=== PATIENT | male | born 1945 | race Caucasian/White ===

== ENCOUNTER → 2021-01-20 | Outpatient (CLI) | payer OTHER ==
[~2021-01-20] MED LIST: CENTRUM SILVER1 EAC1 PO; LEVOTHYROXINE50 MCG PO; LISINOPRIL10 MG PO; PRAVASTATIN SOD40 MG PO; TAGAMET HB200 MG PO; TYLENOL 8 HOUR650 MG PO; XANAX 0.25 MG0.25 MG PO
[2021-01-20 11:52] LABS: HEMOGLOBIN 15.2 gm/dl (14.0-17.5); RED BLOOD COUNT 4.87 M/UL (4.20-5.50); WHITE BLOOD COUNT 6.5 K/UL (4.5-11.0)
[2021-01-20 12:20] LABS: BUN/CREATININE RATIO 15 (0-10)
== END ==
LOC: EDSTATUS 10:30 → OPSV2 10:30
PROVIDERS: Orthopaedic Surgery
DX: Z01.818 Encounter for other preprocedural examination (principal); M17.12 Unilateral primary osteoarthritis, left knee
CPT/HCPCS: 36415; 71046; 80048; 85025; 87081; 93005

== ENCOUNTER → 2021-04-06 | Outpatient (CLI) | payer OTHER ==
[~2021-04-06] MED LIST changes: +EQUATE EYE EYEBOTH
[2021-04-06 13:31] LABS: BUN/CREATININE RATIO 9 (0-10)
[2021-04-06 13:43] LABS: HEMOGLOBIN 14.6 gm/dl (14.0-17.5); RED BLOOD COUNT 4.95 M/UL (4.20-5.50); WHITE BLOOD COUNT 5.4 K/UL (4.5-11.0)
== END ==
LOC: OPSV2 11:44 → EDSTATUS 12:00 → OPSV2 12:00
PROVIDERS: Orthopaedic Surgery
DX: Z01.818 Encounter for other preprocedural examination (principal); M17.12 Unilateral primary osteoarthritis, left knee; R91.8 Other nonspecific abnormal finding of lung field
CPT/HCPCS: 71046; 80048; 81001; 85025; 87086; 93005

== ENCOUNTER → 2021-04-18 | Outpatient (CLI) | payer OTHER ==
[~2021-04-18] MED LIST changes: +ELIQUIS 2.5 MG2.5 MG GT; +HYDROCODON-ACE1 EAC6 PO
[2021-04-18 15:04] LABS: BUN/CREATININE RATIO 13 (0-10)
== END ==
LOC: LAB 13:19
PROVIDERS: Orthopaedic Surgery
DX: Z01.812 Encounter for preprocedural laboratory examination (principal); M17.12 Unilateral primary osteoarthritis, left knee; I10 Essential (primary) hypertension
CPT/HCPCS: 36415; 80048; 86850; 86900; 86901

== ENCOUNTER 2021-04-19 09:12 | Day surgery (SDC) | payer OTHER ==
[~2021-04-19] VITALS: Ht 167.6 cm; Wt 120.2 kg
[~2021-04-19 09:12] MED LIST changes: -ELIQUIS 2.5 MG2.5 MG GT; -HYDROCODON-ACE1 EAC6 PO
[2021-04-19] MEDS ORDERED: HYDROCODON-ACE1 EAC6 PO (13:39)
[2021-04-20 04:04] LABS: HEMOGLOBIN 13.1 gm/dl (14.0-17.5); RED BLOOD COUNT 4.21 M/UL (4.20-5.50); WHITE BLOOD COUNT 10.2 K/UL (4.5-11.0)
[2021-04-20 04:31] LABS: BUN/CREATININE RATIO 14 (0-10)
--- NOTE | 2021-04-20 06:20 | NUR ---
BLADDER SCANNED TWICE THIS SHIFT, THE FIRST TIME SHOWING ONLY 21 MLS AND THE SECOND ONE SHOWING 69 MLS. PATIENT HAD OVER 400 MLS OUT THIS SHIFT.
[2021-04-20] MEDS ORDERED: ELIQUIS 2.5 MG2.5 MG GT (06:51)
== END 2021-04-20 15:32 | disposition home health service (06) ==
LOC: OR 09:12 → M/S 17:41 → OR 04-20 15:32
PROVIDERS: Orthopaedic Surgery; Physician Assistant
DX: M17.12 Unilateral primary osteoarthritis, left knee (principal); I10 Essential (primary) hypertension; E78.5 Hyperlipidemia, unspecified; Z88.6 Allergy status to analgesic agent; Z88.5 Allergy status to narcotic agent; Z88.0 Allergy status to penicillin; Z88.8 Allergy status to other drugs, medicaments and biological substances; K21.9 Gastro-esophageal reflux disease without esophagitis; E03.9 Hypothyroidism, unspecified; R00.1 Bradycardia, unspecified; E66.01 Morbid (severe) obesity due to excess calories; K44.9 Diaphragmatic hernia without obstruction or gangrene; Z20.822 Contact with and (suspected) exposure to COVID-19; Z68.41 Body mass index [BMI] 40.0-44.9, adult
CPT/HCPCS: 36415; 73560; 76000; 80048; 84439; 84443; 85025; 93005; 97116-GP-CQ; 97161; 97166; 97530-GP-CQ; 97535; C1776; J0171; J0690; J1100; J1170; J1200; J1885; J2001; J2250; J2405; J2704; J2795; J3475; J7120

== ENCOUNTER → 2021-08-12 | Outpatient (CLI) | payer OTHER ==
[~2021-08-12] MED LIST changes: +ELIQUIS 2.5 MG2.5 MG GT; +HYDROCODON-ACE1 EAC6 PO
== END ==
LOC: KOH-I 13:52
DX: R20.0 Anesthesia of skin (principal); M79.662 Pain in left lower leg; M79.89 Other specified soft tissue disorders
CPT/HCPCS: 93971